=== PATIENT | male | born 1950 | race Caucasian/White ===

== ENCOUNTER 2020-07-20 09:56 | Observation (INO) | payer OTHER, MEDICARE ==
[~2020-07-20] VITALS: Ht 165.1 cm; Wt 56.3 kg
[2020-07-20] MEDS ORDERED: SODIUM CHLORIDE FLUSH 10ML SYR IVF ONE (10:30)
[2020-07-20] MEDS ORDERED: SODIUM CHLORIDE 0.9% 1,000ML IVBOLUS ONE (10:30)
[2020-07-20] MEDS ORDERED: PLEASE ENTER ALLERGIES MC SCH (10:30)
[2020-07-20 10:42] LABS: BASOPHILS % (AUTO) 1 % (0-1); EOSINOPHILS % (AUTO) 4 % (1-7); LYMPHOCYTES % (AUTO) 24 % (22-44); MEAN CORPUSCULAR HEMOGLOBIN 29.2 pg (27.5-34.5); MEAN CORPUSCULAR HGB CONC 32.7 g/dL (33.2-36.2); MEAN PLATELET VOLUME 10.3 fL (7.4-10.4); MONOCYTES % (AUTO) 9 % (2-9); NEUTROPHILS % (AUTO) 62 % (42-75); PLATELET COUNT 261 x10^3/uL (130-400); RED BLOOD COUNT 4.85 x10^6/uL (4.38-5.82); RED CELL DISTRIBUTION WIDTH 13.7 % (9.4-14.8)
[2020-07-20 10:43] LABS: MD NO
[2020-07-20 10:47] LABS: PH, VENOUS 7.339 pH (7.320-7.420)
[2020-07-20 10:51] LABS: ALANINE AMINOTRANSFERASE 21 U/L (12-78); ALBUMIN 3.6 g/dL (3.4-5.0); ANION GAP 9 mmol/L (5-15); CALCIUM 9.2 mg/dL (8.5-10.1); CHLORIDE 100 mmol/L (98-107)
[2020-07-20 10:54] LABS: ALKALINE PHOSPHATASE 92 U/L (45-117); BILIRUBIN,TOTAL 0.5 mg/dL (0.2-1.0); TOTAL PROTEIN 8.1 g/dL (6.4-8.2)
--- NOTE | 2020-07-20 10:58 | NUR ---
PT CAME IN CO OF HIGH BLOOD SUGAR. "IT WAS IN THE 500s SO MY PCP TOLD ME TO COME TO THE ER". PT STATES HE HASNT HAD INSULIN IN OVER A MONTH. PT RESTING IN [facility]. LABS SENT. IV FLUIDS INFUSING. CONNECTED TO ALL MONITORING EQUIPMENT
[2020-07-20 11:05] LABS: ACETONE, SERUM Moderate(40mg/dL) (Negative)
[2020-07-20] MEDS ORDERED: INSULIN SINGLE DOSE, ER ONE ×2 (11:21→11:32)
[2020-07-20] MEDS ORDERED: LACTATED RINGERS 1,000 ML IV SCH (11:30)
[2020-07-20] MEDS ORDERED: ACETAMINOPHEN 500 MG TABLET PO ONE (11:30)
[2020-07-20] MEDS ORDERED: INSULIN REGULAR 100 UNITS/ML, 3ML VIAL SQ-INSULIN ONE (11:30)
--- NOTE | 2020-07-20 11:30 | NUR ---
PT TBADM. PT EDUCATED ON PLAN OF CARE. MEDICATED PER MAR
[2020-07-20 11:32] LABS: MICROSCOPIC NOT IND
[2020-07-20] MEDS ORDERED: ACETAMINOPHEN 500 MG TABLET ONE (11:32)
[2020-07-20] MEDS ORDERED: LABETALOL 5MG/ML, 20ML IVPush PRN (12:00)
[2020-07-20] MEDS ORDERED: OXYcodone IR 5MG TABLET PO PRN (12:00)
[2020-07-20] MEDS ORDERED: ONDANSETRON 2MG/ML, 2ML IVPush PRN (12:00)
[2020-07-20] MEDS ORDERED: INSULIN GLARGINE 100 UNITS/ML, PEN SQ-INSULIN SCH (12:00)
[2020-07-20] MEDS ORDERED: DOCUSATE 100 MG CAPSULE PO PRN (12:00)
[2020-07-20] MEDS ORDERED: ACETAMINOPHEN 325 MG TABLET PO PRN (12:00)
[2020-07-20] MEDS ORDERED: hydrALAzine 20 MG/ML, 1ML IVPush PRN (12:00)
[2020-07-20] MEDS ORDERED: LIDODERM 5% PATCH TD PRN (12:00)
[2020-07-20 12:54] VITALS: BP 126/75
[2020-07-20 13:40] LABS: HCT (SEDRATE) 43.4 % (39.2-51.8)
[2020-07-20] MEDS: HEPARIN 5,000 UNITS/ML, 1ML SQ SCH ×2 (14:30→20:07)
[2020-07-20] MEDS: LACTATED RINGERS 1,000 ML IV SCH (14:30)
[2020-07-20] MEDS: INSULIN LISPRO 100 UNITS/ML, PEN SQ-INSULIN SCH ×5 (14:31→20:56)
[2020-07-20] MEDS ORDERED: DEXTROSE 50%, 50ML SYRINGE IVPush PRN (17:00)
[2020-07-20] MEDS ORDERED: GLUCAGON 1 MG IM PRN (17:00)
[2020-07-20] MEDS ORDERED: DEXTROSE 4 GM TAB.CHEW PO PRN (17:00)
[2020-07-20 19:09] VITALS: BP 136/70
[2020-07-20] MEDS: GABAPENTIN 100 MG CAPSULE PO SCH (20:55)
[2020-07-20] MEDS: SODIUM CHLORIDE FLUSH 10ML SYR IVF SCH (20:57)
[2020-07-20] MEDS: INSULIN GLARGINE 100 UNITS/ML, PEN SQ-INSULIN SCH (20:57)
[2020-07-20] MEDS ORDERED: TRAZODONE 50MG TABLET PO PRN (21:00)
[2020-07-20] MEDS ORDERED: MELATONIN 5 MG TABLET PO PRN (21:00)
[2020-07-20] MEDS ORDERED: ATORVASTATIN 40 MG TABLET PO SCH (21:00)
[2020-07-21 00:51] VITALS: BP 122/76
[2020-07-21] MEDS: LACTATED RINGERS 1,000 ML IV SCH (02:05)
[2020-07-21] MEDS: HEPARIN 5,000 UNITS/ML, 1ML SQ SCH ×2 (04:07→12:00)
[2020-07-21 05:10] LABS: BASOPHILS % (AUTO) 1 % (0-1); EOSINOPHILS % (AUTO) 5 % (1-7); LYMPHOCYTES % (AUTO) 35 % (22-44); MEAN CORPUSCULAR HEMOGLOBIN 29.3 pg (27.5-34.5); MEAN CORPUSCULAR HGB CONC 33.7 g/dL (33.2-36.2); MEAN PLATELET VOLUME 10.5 fL (7.4-10.4); MONOCYTES % (AUTO) 7 % (2-9); NEUTROPHILS % (AUTO) 52 % (42-75); PLATELET COUNT 230 x10^3/uL (130-400); RED BLOOD COUNT 4.41 x10^6/uL (4.38-5.82); RED CELL DISTRIBUTION WIDTH 13.6 % (9.4-14.8)
[2020-07-21 05:11] LABS: MD NO
[2020-07-21 05:24] LABS: ANION GAP 7 mmol/L (5-15); CALCIUM 8.7 mg/dL (8.5-10.1); CHLORIDE 109 mmol/L (98-107)
[2020-07-21 05:25] LABS: CHOL/HDL RATIO 4.7; CHOLESTEROL, TOTAL 177 mg/dL (140-239); HDL CHOL % 21 % (26-37); HDL CHOLESTEROL (DIRECT) 38 mg/dL (40-60); LDL CHOLESTEROL,CALCULATED 107 mg/dL (54-169); LDL/HDL RATIO 2.8 (0.5-3.0); TRIGLYCERIDES 158 mg/dL (50-200); VLDL CHOLESTEROL 32 mg/dL (0-25)
[2020-07-21] MEDS: INSULIN LISPRO 100 UNITS/ML, PEN SQ-INSULIN SCH ×4 (07:00→12:06)
[2020-07-21 07:32] VITALS: BP 120/72
[2020-07-21] MEDS: GABAPENTIN 100 MG CAPSULE PO SCH (08:55)
[2020-07-21] MEDS: INSULIN GLARGINE 100 UNITS/ML, PEN SQ-INSULIN SCH (08:56)
[2020-07-21] MEDS: SODIUM CHLORIDE FLUSH 10ML SYR IVF SCH (08:56)
[2020-07-21] MEDS ORDERED: ASPIRIN 81 MG TABLET CHEW PO SCH (09:00)
[2020-07-21 12:21] VITALS: BP 124/69
[2020-07-21] MEDS ORDERED: GABA-826 PO (12:24)
[2020-07-21] MEDS ORDERED: ASPI-963 PO (12:24)
[2020-07-21] MEDS ORDERED: ATOR40TA78 PO (12:24)
[2020-07-21] MEDS ORDERED: INSU100I13 SQ-INSULIN (12:24)
[2020-07-21] MEDS ORDERED: INSU100I11 SQ-INSULIN (12:24)
[2020-07-21] MEDS ORDERED: INSULIN GLARGINE 100 UNITS/ML, PEN SQ-INSULIN SCH (21:00)
== END 2020-07-21 14:28 | disposition home or self-care (01) ==
LOC: ED 11:38 → EDIP 12:09 → 3N 12:37 → DCLOUNGE 07-21 14:18
PROVIDERS: ADMIT Hospitalist; ATTEND Hospitalist
DX: E11.65 Type 2 diabetes mellitus with hyperglycemia (principal); E87.2 Acidosis; N17.9 Acute kidney failure, unspecified; I10 Essential (primary) hypertension; E78.5 Hyperlipidemia, unspecified; F51.04 Psychophysiologic insomnia; H54.7 Unspecified visual loss; K59.00 Constipation, unspecified; R29.6 Repeated falls; Z86.73 Personal history of transient ischemic attack (TIA), and cerebral infarction without residual deficits; Z79.4 Long term (current) use of insulin; Z91.81 History of falling; Z79.82 Long term (current) use of aspirin; Z79.899 Other long term (current) drug therapy; Z91.14 Patient's other noncompliance with medication regimen; Z87.891 Personal history of nicotine dependence
CPT/HCPCS: 36415; 71045; 80048; 80053; 80061; 81003; 82010; 82607; 82803; 82947; 82962; 83036; 83690; 83735; 84100; 84443; 85025; 85651; 93005; 96360; 96361; 96372; 97161; 97165; 99285; G0378; J1644; J1815; J7030; J7120